=== PATIENT | female | born 1990 | race Caucasian/White ===

== ENCOUNTER 2022-03-18 03:54 | Emergency (ER) | payer BC, OTHER ==
[2022-03-18 04:04] VITALS: RESP 18; BMI 23.6
[2022-03-18] MEDS ORDERED: ACETAMINOPHEN 1000 MG/100 ML BAG IVPB ONE (04:27)
[2022-03-18] MEDS ORDERED: ACETAMINOPHEN INJECTION 100 ML IVPB ONE (04:32)
[2022-03-18 05:11] LABS: EOS % 0.8 % (0-4.5); HEMATOCRIT 28.7 % (32.4-45.2); HEMOGLOBIN 9.1 GM/dL (10.7-15.3); LYMPH % 26.2 % (8-40); MCH 21.9 pg (25.7-33.7); MCHC 31.8 g/dl (32.0-36.0); MEAN PLT VOLUME 8.2 fl (7.5-11.1); MONO % 6.4 % (3.8-10.2); NEUT % 65.6 % (42.8-82.8); PLATELET COUNT 314 10^3/uL (134-434); RBC 4.17 M/mm3 (3.60-5.2); WHITE BLOOD COUNT 9.1 K/mm3 (4.0-10.0)
[2022-03-18] MEDS ORDERED: SODIUM CHLORIDE 0.9% 500 ML INFUS.BAG IV ONE (05:16)
[2022-03-18 05:26] LABS: ALBUMIN 3.7 g/dl (3.4-5.0); CALCIUM 8.7 mg/dL (8.5-10.1)
[2022-03-18 05:27] LABS: BLOOD UREA NITROGEN 19.9 mg/dL (7-18)
[2022-03-18 05:30] LABS: BILIRUBIN,TOTAL 0.5 mg/dL (0.2-1); CREATININE 0.6 mg/dL (0.55-1.3); TOT PROT 6.9 g/dl (6.4-8.2)
[2022-03-18 07:52] VITALS: BP 95/63; PULSE 75; TEMP 98.3
[2022-03-18 08:00] LABS: ANISOCYTOSIS 3+; MACROCYTOSIS 0
== END 2022-03-18 08:08 | disposition home or self-care (01) ==
LOC: JER 03:54
PROC: 3E033GC Introduction of Other Therapeutic Substance into Peripheral Vein, Percutaneous Approach (ICD-10-PCS; principal; 2022-03-18)
DX: R55 Syncope and collapse (principal); S00.451A Superficial foreign body of right ear, initial encounter; S00.81XA Abrasion of other part of head, initial encounter; W45.8XXA Other foreign body or object entering through skin, initial encounter; W19.XXXA Unspecified fall, initial encounter
CPT/HCPCS: 36415; 70450-TC; 70486-TC; 71046-TC-FY; 72125-TC; 73110-TC-LT-FY; 80053; 84484; 84703; 85025; 93005; 93010; 99285-25; C9803-CS; U0003; U0005